=== PATIENT | male | born 1955 | race Caucasian/White ===

== ENCOUNTER → 2024-08-21 12:11 | Outpatient (REF) | payer SELFPAY | LOC: LAB 12:11 | PROVIDERS: ATTENDING PHYSICIAN Surgery | DX: Z12.11 Encounter for screening for malignant neoplasm of colon (principal); D49.0 Neoplasm of unspecified behavior of digestive system; K56.690 Other partial intestinal obstruction; D12.3 Benign neoplasm of transverse colon; K64.0 First degree hemorrhoids; K57.30 Diverticulosis of large intestine without perforation or abscess without bleeding | CPT/HCPCS: 88305 ==

== ENCOUNTER → 2024-08-21 12:45 | Outpatient (REF) | payer OTHER, SELFPAY | LOC: RAD 12:45 | PROVIDERS: ATTENDING PHYSICIAN Surgery; FAMILY PHYSICIAN Family Medicine | DX: C18.4 Malignant neoplasm of transverse colon (principal) | CPT/HCPCS: 74177; Q9967 ==

== ENCOUNTER 2024-09-10 08:59 | Inpatient (IN) | payer OTHER, MEDICARE, SELFPAY ==
[2024-09-01 08:56] LABS: Hematocrit 43.8 % (39.0-52.0); Hemoglobin 14.2 g/dL (13.0-18.0); Mean Corp Hgb Conc. 32.4 g/dL (33.0-37.0); Mean Corpuscular Volume 89.0 fL (80.0-94.0); Platelet Count 327 10^3/uL (130-400); Red Cell Dist. Width 14.4 % (11.5-14.5)
[2024-09-01 09:06] LABS: INR 0.92; PT 12.7 Sec (11.4-14.6)
[2024-09-01 09:07] LABS: APTT 27.4 Sec (23.4-35.0)
[2024-09-01 09:18] LABS: ALT (SGPT) 17 U/L (0-50); AST (SGOT) 19 U/L (17-59); Albumin 4.1 g/dl (3.5-5.0); Alkaline Phosphatase 62 U/L (38-126); Blood Urea Nitrogen 9 mg/dl (9-20); Calcium 9.8 mg/dl (8.4-10.2); Carbon Dioxide 26 mmol/L (22-30); Chloride 108 mmol/L (98-107); Glucose 92 mg/dl (70-99); Potassium 5.4 mmol/L (3.5-5.1); Sodium 138 mmol/L (135-145); Total Protein 6.7 g/dl (6.3-8.2); eGFR > 60.00
[2024-09-01 09:59] LABS: Glycohemoglobin (HgbA1c) 6.2 % (4.0-5.6)
[2024-09-01 13:56] VITALS: BMI 28.0
[2024-09-10] VITALS (8 sets, daily range): BP systolic 98–142; BP diastolic 54–71; BMI 28.0
[2024-09-10] MEDS: CELEBREX 200 MG PO (09:34)
[2024-09-10] MEDS: NORMOSOL-R/PLASMALYTE-A 1000 IV ×2 (09:34→17:57)
[2024-09-10] MEDS: TYLENOL 1000 MG PO ×2 (09:34→23:23)
[2024-09-10] MEDS: LYRICA 150 MG PO (09:34)
[2024-09-10] MEDS: HEPARIN 5000 UNITS SC (10:09)
--- NOTE | 2024-09-10 16:29 | W.IMMPOSTOP ---
Addendum entered and electronically signed by Elmo Jones MD 09/10/24 16:53:
updated via phone
Original Note:
Surgical Immed Post Op Note
-
Primary Surgeon: Elmo Jones MD
Assisting Surgeon: GARETT Leal
Pre-op Diagnosis: Colon cancer
Post-op Diagnosis: Colon cancer
Procedure Performed: Robotic right hemicolectomy, lysis of adhesions, repair of serosal tear, mesenteric angiography with ICG, laparoscopic TAP block
Anesthesia Type: General
Specimen / Cultures: Right hemicolectomy
Estimated Blood Loss: 50 mL
UOP: 400 mL
IVF: 1.7 L
Complications: None
Operative Findings: Entered with Veress technique, placed ports and made 6 cm Pfannenstiel; significant adhesions to the anterior abdominal wall from the omentum; identified tattoo in the mid transverse colon; significant portion of transverse colon
retracted into the left upper quadrant; placed an RLQ 8 mm port and repositioned robot to direct up to the left upper quadrant; identified serosal tear on the distal transverse colon and repaired with Lembert 3-0 Vicryl; entered the lesser sac and
divided gastrocolic ligament from distal transverse up to tattoo; confirmed cancer was greater than 8 cm from the tattoo and therefore proceeded with extended right hemicolectomy; freed up the gastrocolic ligament to the proximal transverse colon;
switched to a medial to lateral mobilization of the right colon; significant adhesions in the RLQ from prior appendectomy; performed high ligation of the ileocolic pedicle; selected a point on the TI about 5 cm proximal to the ileocecal valve and
ligated the mesentery; selected a point 8 cm distal to the cancer, created a hole in the mesentery and ligated the mesentery to my previous mobilization; performed high ligation of the left and right branches of the middle colic; upsized the LUQ
port site to 12 mm and stapled; specimen was removed and examined on the back table, confirm margins; performed intracorporeal psrt-br-godf isoperistaltic stapled ileocolic anastomosis
--- NOTE | 2024-09-10 16:37 | OR.RPT ---
Operative Report
Operative Report
DATE OF OPERATION: 09/10/2024
SURGEON:� Elmo Jones MD
PREOPERATIVE DIAGNOSIS: Transverse colon cancer
POSTOPERATIVE DIAGNOSIS: Transverse colon cancer
OPERATION: Robotic extended right hemicolectomy, adhesiolysis greater than 1 hr, repair of serosal injury, mesenteric angiography with ICG, laparoscopic TAP block
ASSISTANTS:
1.� GARETT Leal
ANESTHESIA: General
ESTIMATED BLOOD LOSS: 50 mL
UOP: 400 mL
IVF: 1700 mL
FINDINGS:
1.� Tattoo in the mid transverse colon; tumor identified by palpation in the proximal transverse colon
2.� Intracorporeal quit-tp-xhur isoperistaltic ileocolic anastomosis with perfusion confirmed on firefly
SPECIMENS:
1.� Extended right colectomy
DRAINS: None
COMPLICATIONS: No immediate complications.
INDICATIONS:� The patient is a 68-year-old male who was found to have a colon mass on a screening CT chest.� A colonoscopy confirmed a large transverse colon cancer that was unable to be traversed.� Staging scans showed no evidence of distant
metastasis and stable pulmonary nodules.� Therefore, I recommended proceeding with surgery.� The operation was discussed with the patient in detail, including the risks, benefits and alternatives. Risks described included, but not limited to,
bleeding, infection, anastomotic leak, damage to nearby structures (i.e.- bowel, bladder, solid organ injury, ureter), need for ostomy creation, conversion to open, incisional hernia, inability to remove the entire cancer, future recurrence or
metastasis and anesthetic risks. The patient understood and agreed to proceed.
Colon cancer synoptic report:
� Operation performed with curative intent: Yes
� Tumor location: Proximal transverse colon
� Arterial ligation: High ligation of ileocolic pedicle, right and left branches of the middle colic
PROCEDURE IN DETAIL:� The patient was taken to the operating room and placed on the operating table in supine position. Sequential compression devices were placed bilaterally. General anesthesia was induced and the patient was intubated without
complication.� Bilateral arms were tucked.� Parada catheter was placed with sterile technique.� Anesthesia placed an orogastric tube.� Preoperative antibiotics were given.� The abdomen was shaved, prepped and draped in a sterile fashion.� A marking
pen was used to joey out the midline.� A time-out was performed verifying the correct patient, procedure, operative site, positioning, and special equipment.
At Richardson's point, using an 11 blade scalpel, an 8 mm incision was made.� A Veress needle was used to obtain abdominal access.� After 3 clicks, insufflation was initiated and the opening pressure was noted to be less than 8 mmHg.� The abdomen was
insufflated to a pressure of 12, which the patient tolerated well.� The 8 mm robotic trocar was introduced and the robotic endoscope advanced.� No injury from initial Veress placement or port placement was noted.� The abdomen was explored. �There
were significant adhesions from the omentum to the anterior abdominal wall, primarily along the midline of the abdomen. �The adhesions were not interfering with my planned left-sided ports. There were no concerning peritoneal lesions or superficial
lesions on the liver.� At this point, the tattoo was unable to be visualized due to the adhesions.
In a diagonal fashion from the planned Pfannenstiel incision to the Richardson's point incision, 2 more robotic trocars were placed under direct visualization taking care to avoid injury to the epigastric vessels.� An assist port was placed in the left
lateral abdomen under direct visualization as well. A 6 cm Pfannenstiel incision was made with a 15 blade scalpel 2 fingerbreadths superior to the pubic symphysis.� I took this down to the level of fascia with Bovie electrocautery and hemostasis was
assured.� The anterior fascia was incised with electrocautery and extended to just beyond the length of the Pfannenstiel incision on each side.� Using jewel's, the anterior fascia was grasped and elevated.� The attachments to the rectus muscle were
taken down bluntly and attachments to the midline were taken down with electrocautery.� This was done both superiorly and inferiorly to our incision.� Then, the midline was split, first with electrocautery and then with Amaris's to spread the rectus
muscle.� The preperitoneal fat was and the peritoneum was grasped and elevated.� The peritoneum was divided with Metzenbaum scissors and the abdomen was entered. The peritoneum was opened superiorly and inferiorly to the extent that our
incision would allow, taking care to avoid injury to the bladder.� A small Leonel was placed and a port cap attached.� The 12 mm robotic port was placed through the port cap.� The patient was placed in [id number] with slight Trendelenburg.� The
robot was docked from the patient's right side.� From the Pfannenstiel to Richardson's point, the instruments introduced were the bipolar grasper, camera, scissors and tip up grasper.
I began by taking down the adhesions from the omentum to the anterior abdominal wall meticulously with sharp dissection to avoid injury to any underlying bowel.� I retracted the omentum above the transverse colon and identified the tattoo.� The
tattoo appeared to be in the distal transverse colon near the left upper quadrant.� Based on this configuration, I was worried that I may need to convert to a segmental left colectomy of the splenic flexure.� In order to mobilize the transverse
colon from the left upper quadrant, I placed an additional 8 mm robotic port in the right lower quadrant and shifted the robotic ports to better triangulate towards the left upper quadrant.� I elevated the omentum and divided the gastrocolic
ligament near the tattoo.� I entered the lesser sac and confirmed this by visualizing the posterior wall of the stomach.� I divided the gastrocolic ligament up to the splenic flexure.� At this point, I identified a serosal injury on the distal
transverse colon, about 1.5 cm in length.� I repaired this injury using interrupted imbricating 3-0 Vicryl Lembert stitches.� The bowel appeared healthy and well-perfused around the repair.� Now that the transverse colon was mobile, it appeared that
the transverse colon was redundant and had retracted up towards the left upper quadrant.� With the gastrocolic ligament divided, the tattoo was now in the mid-transverse colon.� On palpating the colon itself, I identified a large intraluminal mass
in the proximal colon several centimeters proximal to the tattoo. �This was consistent with the tumor that was seen on the CT scan.� At this point, it was clear that the most ideal resection for the location of this tumor would be an extended right
hemicolectomy.� I continued ligating the gastrocolic ligament up to the proximal transverse colon.� I rotated the robotic ports back to my usual set up for a right colectomy.
I grasped and elevated the cecum.� However, this was hindered due to the RLQ adhesions.� Therefore, I performed adhesiolysis to free up the cecum, terminal ileum and right colon.� I swept the small bowel towards the pelvis. Using my tip-up grasper,
I retracted the transverse colon. The ileocolic pedicle was nicely exposed. A medial to lateral mobilization was performed by first incising the peritoneal lining just below the pedicle using the robotic scissors. I elevated the pedicle anteriorly
and swept the retroperitoneum down bluntly in order to identify the duodenum.� Once the duodenum was swept away from the takeoff of the ileocolic pedicle, I isolated the ileocolic pedicle circumferentially and performed a high ligation using the
vessel sealer. The ileocolic stump was hemostatic.� I continued my medial to lateral dissection up to the hepatic flexure, connecting to my prior dissection, and then below the right colon and cecum, taking care to avoid injury to the duodenum,
right kidney and right ureter.�
I selected a point about 5 cm proximal from the ileocecal valve and elevated this with my tip up grasper.� I grasped the transected ileocolic pedicle on the specimen side and used the vessel sealer to serially ligate the mesentery up to my selected
point on the terminal ileum. �I turned to the transverse colon and again confirmed that the tumor itself was about 8 to 10 cm proximal to the tattoo.� Therefore, I selected a point on the distal aspect of the tattoo and elevated this.� I created a
window at the mesenteric border.� I serially ligated the mesentery, performing a high ligation of the right and left branches of the middle colic artery.� This part of the dissection was difficult due to the weight and adiposity of the transverse
colon mesentery. I connected the mesenteric dissection to my previous dissection.� Anesthesia injected ICG.� I confirmed that my transection points were well-perfused.� Using the blue load of the 60 mm robotic stapler, I stapled and divided at my
selected proximal and distal transection points. The specimen was extracted through the Pfannenstiel incision and passed off.� The specimen was examined on the back table and good margins were noted proximally and distally (greater than 5 cm).
I examined the bowel for my future anastomosis.� I placed the terminal ileum adjacent to the transverse colon.� This aligned nicely for a [id number]-lr-wbrw isoperistaltic anastomosis without any evidence of tension.� I upsized the LUQ port to a 12 mm
robotic port.� I created a colotomy at about 7 cm distal to the staple line on the transverse colon and a enterotomy 2 cm proximal to the staple line on the terminal ileum.� I advanced the 60 mm robotic stapler with a white load through the bowel
openings, ensured ideal alignment and fired.� After the robotic stapler was withdrawn, no bleeding was noted from the staple line.� The common defect was closed using a 3-0 V-loc suture in 2 layers, starting from the superior aspect and sewing
inferiorly in a running baseball fashion, and then superiorly in a running Jacques fashion in order to imbricate the first layer.
After the anastomosis was complete the operative field was examined.� There was complete hemostasis, no bowel herniating through the mesenteric defect and good perfusion to our anastomosis without any evidence of tension.� The greater omentum was
grasped and evaluated and appeared well-vascularized.� ��The omentum was draped over the anastomosis.
The instruments were removed and the robot was undocked.� The fascia of the LUQ port was closed using a Freedom-Trent device and a 0 Vicryl suture.� A TAP block was performed under laparoscopic guidance.� 15mL of 0.25% Marcaine with epinephrine
and dexamethasone was injected bilaterally.� The ports were removed under direct visualization and no bleeding was noted.� The abdomen was allowed to desufflate.� The Pfannenstiel incision was closed in layers.� Using an 0 Vicryl stitch, the
peritoneum was closed in a running fashion.� The fascia was closed with an 0 Stratafix suture.� The incisions were irrigated and injected with the remaining 30mL of local.� The skin of the incisions were closed with a 4-0 Monocryl in running
subcuticular fashion and dressed with Dermabond.
At this point, the procedure was complete. The patient was awoken and extubated without complication. All needle, sponge and instrument counts were reported as correct. The patient tolerated the procedure well and was transferred to the recovery
room in stable condition with the parada in place.
DICTATED BY:� Elmo Jones MD
[2024-09-10] MEDS: TORADOL 15 MG IV ×2 (17:10→23:15)
--- NOTE | 2024-09-10 18:24 | PTCARENOTE ---
pt aaox3. states no pain. abd lap sites and small inc intact with glue c/d/i. parada in place draining clear yellow. nc3l breath sounds clear. ivf running as ordered. family at bedside reviewed plan of care.
[2024-09-10] MEDS: TYLENOL PO (18:26)
[2024-09-10] MEDS: SYMBICORT 80/4.5 MCG INHALER 2 PUFF INH (20:37)
[2024-09-10] MEDS: VENTOLIN NEBULES 2.5 MG INH (20:37)
[2024-09-11 03:41] VITALS: BP 133/64
[2024-09-11] MEDS: TYLENOL 1000 MG PO ×2 (05:45→12:59)
[2024-09-11] MEDS: TORADOL 15 MG IV ×2 (05:45→13:00)
[2024-09-11 06:54] LABS: Hematocrit 36.7 % (39.0-52.0); Hemoglobin 12.6 g/dL (13.0-18.0); Mean Corp Hgb Conc. 34.3 g/dL (33.0-37.0); Mean Corpuscular Volume 86.6 fL (80.0-94.0); Nucleated Red Blood Cells % 0 % (-); Platelet Count 259 10^3/uL (130-400); Red Cell Dist. Width 14.1 % (11.5-14.5)
[2024-09-11 07:35] VITALS: BP 137/60
[2024-09-11] MEDS: CLARITIN 10 MG PO (08:05)
[2024-09-11] MEDS: NORVASC 10 MG PO (08:05)
[2024-09-11] MEDS: SPIRIVA RESPIMAT 2.5 MCG 2 PUFF INH (08:23)
[2024-09-11] MEDS: VENTOLIN NEBULES 2.5 MG INH ×2 (08:24→13:13)
[2024-09-11] MEDS: SYMBICORT 80/4.5 MCG INHALER 2 PUFF INH (08:24)
[2024-09-11 08:27] LABS: Blood Urea Nitrogen 10 mg/dl (9-20); Calcium 8.1 mg/dl (8.4-10.2); Carbon Dioxide 24 mmol/L (22-30); Chloride 103 mmol/L (98-107); Estimated Creatinine Clearance 96 ml/min; Glucose 131 mg/dl (70-99); Magnesium 2.3 mg/dl (1.6-2.3); Potassium 4.1 mmol/L (3.5-5.1); Sodium 131 mmol/L (135-145); eGFR > 60.00
--- NOTE | 2024-09-11 08:42 | W.PN.CRS1 ---
Today's Communication / Plan
-
As below
Assessment/Plan
-
68-year-old male with COPD, HTN, HLD and seasonal allergies who was found to have transverse colon cancer, presented for elective surgery
POD 1 robotic extended RHC with lysis of adhesions
AFVSS, UOP 1.6 L
WBC 11.9, Hb 12.6 from 14.2, BMP pending
� Continue regular diet; cautioned about nausea/vomiting and going slow
� Pain control with Tylenol, Toradol, oxycodone and Dilaudid as needed, continue Relistor daily
� Continue home meds
� Will start DVT PPx with Lovenox
�DC Honeycutt, monitor for void
� Encourage OOB, ambulate 3 times daily, incentive spirometry
Dispo�if passing flatus, urinating and tolerating a diet, okay for DC this afternoon; otherwise possibly tomorrow
Subjective Data
Subjective Data
Date of Service: September 11, 2024
No overnight events.
Pain controlled.
Denies nausea/vomiting. Tolerating diet.
-flatus -BMs + Honeycutt
Pt is not OOB.
Objective Data
-
Vital Signs
Temp Pulse Resp BP Pulse Ox
98.2 F 84 16 137/60 97
09/11/24 03:41 09/11/24 08:32 09/11/24 08:32 09/11/24 08:05 09/11/24 08:32
Intake & Output
09/10/24 09/11/24 09/12/24
06:59 06:59 06:59
Intake Total 1560 / 1560
Output Total 1575 / 1575
Balance -15 / -15
Intake:
Oral fluids 960 / 960
IV fluids (Total) 600 / 600
normasol 100 / 100
Output:
Urine, Honeycutt 1575 / 1575
Lab Results
09/11/24 06:07
09/11/24 06:07
Physical Exam
-
General: No Acute Distress and AOx3
HEENT: Grossly Normal
Abdomen: Soft, Distended (Mildly distended but is baseline protuberant, somewhat tympanitic), Tender (Appropriately tender near incisions), No Guarding and No Rebound
Neurological: No Motor Deficits
Skin: Warm and Dry
Wound: No Signs of Infection and Dressing in Place (Dermabond)
[2024-09-11] MEDS: RELISTOR 12 MG SC (09:34)
[2024-09-11 11:40] VITALS: BP 123/58
--- NOTE | 2024-09-11 14:00 | CM ---
Addendum entered by Elida Tran 09/11/24 15:49:
Patient/ left the hospital before [facility] coupon provided.
Addendum entered by Elida Tran 09/11/24 14:56:
Discharge to home today; no needs
Original Note:
Met with patient and at bedside
Pharmacy verified: [facility] @ [phone] [facility]
IMM benefit explained; form signed @ [id number]
Patient lives w/ , son, son's and 4 children; multilevel home; 2 steps to enter; 13 steps between floors; railing on stairs; full bath on 1st floor; his 2nd floor bath has stall shower w/ seat
PLOF: reported he is independent with ambulation, stairs and ADLs; works part time flexible clerk; drives
NO SNF or Home Health utilization history
will transport home
Plan: Discharge to home when medically stable; no needs anticipated
== END 2024-09-11 15:05 | disposition home or self-care (01) | DRG 331 ==
LOC: 2 SOUTH 08:59
PROVIDERS: ADMITTING PHYSICIAN Surgery; FAMILY PHYSICIAN Family Medicine
PROC: 0DTF4ZZ Resection of Right Large Intestine, Percutaneous Endoscopic Approach (ICD-10-PCS; 2024-09-10)
PROC: 0DNL4ZZ Release Transverse Colon, Percutaneous Endoscopic Approach (ICD-10-PCS; 2024-09-10)
PROC: 0DNU4ZZ Release Omentum, Percutaneous Endoscopic Approach (ICD-10-PCS; 2024-09-10)
PROC: 8E0W4CZ Robotic Assisted Procedure of Trunk Region, Percutaneous Endoscopic Approach (ICD-10-PCS; 2024-09-10)
DX: C18.4 Malignant neoplasm of transverse colon (principal); J44.9 Chronic obstructive pulmonary disease, unspecified; I10 Essential (primary) hypertension; E78.5 Hyperlipidemia, unspecified; K66.0 Peritoneal adhesions (postprocedural) (postinfection)
CPT/HCPCS: 36415; 71046; 80048; 80053; 83036; 83735; 85025; 85027; 85610; 85730; 86850; 86900; 86901; 88309; 93005; 94640

== ENCOUNTER → 2024-12-13 09:17 | Outpatient (REF) | payer OTHER, SELFPAY | LOC: RAD 09:17 | PROVIDERS: ATTENDING PHYSICIAN Surgery; FAMILY PHYSICIAN Family Medicine | DX: R91.8 Other nonspecific abnormal finding of lung field (principal) | CPT/HCPCS: 71250 ==